=== PATIENT | male | born 1955 | race Caucasian/White ===

== ENCOUNTER 2017-05-15 09:16 | Emergency (ER) | payer OTHER ==
[2017-05-15] MEDS ORDERED: Oxymetazoline HCl 0.05% ( 15 ML ) ONE (09:30)
== END 2017-05-15 10:52 | disposition home or self-care (01) ==
LOC: SCSER 09:16
DX: J06.9 Acute upper respiratory infection, unspecified (principal); H69.91 Unspecified Eustachian tube disorder, right ear; E78.5 Hyperlipidemia, unspecified; F17.200 Nicotine dependence, unspecified, uncomplicated; Z79.899 Other long term (current) drug therapy
CPT/HCPCS: 99282